=== PATIENT | male | born 1955 | race Caucasian/White ===

== ENCOUNTER 2023-09-01 16:39 | Emergency (ER) | payer OTHER ==
[~2023-09-01] VITALS: Ht 167.6 cm; Wt 85.3 kg
[2023-09-01 16:58] LABS: ABG BASE EXCESS -4.6 mmol/L (-2.0-2.0); ABG HCO3 18.6 mmol/L (22.0-26.0); ABG PCO2 28.6 mmHg (35.0-48.0); ABG PO2 68.8 mmHg (75.0-100.0); ABG SITE LEFT RADIAL; ABG TOTAL HEMOGLOBIN 11.5 G/dL (14.0-18.0); AaDO2 94.5 mmHg; COHb 0.3 % (0.0-3.9); O2Hb 93.8 % (94.0-97.0)
[2023-09-01 17:24] LABS: HEMATOCRIT 33.8 % (36.7-47.1); HEMOGLOBIN 10.9 g/dL (12.5-16.3); LYMPHOCYTES # (AUTO) 0.5 K/uL (0.8-4.8); LYMPHOCYTES % (AUTO) 2.2 % (20.5-51.5); MEAN CORPUSCULAR HEMOGLOBIN 27.1 uug (23.8-33.4); MEAN CORPUSCULAR HGB CONC 32 g/dL (32.5-36.3); MEAN CORPUSCULAR VOLUME 84.3 fL (73.0-96.2); MONOCYTES # (AUTO) 1.1 K/uL (0.1-1.30); MONOCYTES % (AUTO) 4.9 % (0.0-11.0); NEUTROPHILS # (AUTO) 20.8 K/uL (1.8-8.9); NEUTROPHILS % (AUTO) 92.9 % (38.5-71.5); PLATELET COUNT (AUTO) 122 K/uL (152-348); RED BLOOD CELL COUNT(AUTO) 4.01 MIL/uL (4.06-5.63); RED CELL DISTRIBUTION WIDTH 16.5 % (12.1-16.2); WHITE BLOOD COUNT (AUTO) 22.4 K/uL (3.6-10.2)
[2023-09-01 17:30] LABS: DIFFERENTIAL COMMENT 1
[2023-09-01 17:32] LABS: CARBON DIOXIDE 22 mmol/L (21-32); CHLORIDE 96 mmol/L (98-107); SODIUM SERUM 131 mmol/L (136-145)
[2023-09-01 17:33] LABS: CALCIUM 8.7 mg/dL (8.5-10.1); CREATININE 2.8 mg/dL (0.6-1.3); GLUCOSE 398 mg/dL (74-106); UREA NITROGEN, BLOOD 51 mg/dL (7-18)
[2023-09-01 17:35] LABS: ETHANOL < 3 MG/DL (0-10)
[2023-09-01 17:36] LABS: AMMONIA < 10 umol/L (11-32)
[2023-09-01 17:42] LABS: ACETONE, SERUM NEGATIVE (NEGATIVE)
[2023-09-01 17:46] LABS: ALANINE AMINOTRANSFERASE 484 U/L (16-63); ALBUMIN 2.9 g/dL (3.4-5.0); ALKALINE PHOSPHATASE 290 U/L (50-136); ASPARTATE AMINOTRANSFERASE 318 U/L (15-37); BILIRUBIN,DIRECT 3.8 mg/dL (0.0-0.2); BILIRUBIN,TOTAL 4.8 mg/dL (0.2-1.0)
[2023-09-01 17:47] LABS: ACETAMINOPHEN < 2.0 ug/mL (10-30); LIPASE 29 U/L (16-77)
[2023-09-01] MEDS ORDERED: PANT40TA49 PO (17:48)
[2023-09-01] MEDS ORDERED: METO-356 PO (17:48)
[2023-09-01] MEDS ORDERED: FERR325T24 PO (17:48)
[2023-09-01] MEDS ORDERED: CHOL500062 PO (17:48)
[2023-09-01] MEDS ORDERED: AMLO10TA59 PO (17:48)
[2023-09-01] MEDS ORDERED: DONE5TAB34 PO (17:48)
[2023-09-01] MEDS ORDERED: HYDR25TA86 PO (17:48)
[2023-09-01] MEDS ORDERED: BRIM10DR6 EACHEYE (17:48)
[2023-09-01] MEDS ORDERED: INSU200I SQ (17:48)
[2023-09-01] MEDS ORDERED: TAMS-3 PO (17:48)
[2023-09-01] MEDS ORDERED: OMEP1PAC3 PO (17:48)
[2023-09-01] MEDS ORDERED: ATOR40TA PO (17:48)
[2023-09-01] MEDS ORDERED: BETHANECHOL PO (17:48)
[2023-09-01] MEDS ORDERED: BETH25TA2 PO (17:48)
[2023-09-01] MEDS ORDERED: [UNRECOGNIZED DRUG - CODE] IJ (17:48)
[2023-09-01] MEDS ORDERED: SPIR25TA6 PO (17:48)
[2023-09-01] MEDS ORDERED: CITA20TA16 PO (17:48)
[2023-09-01] MEDS ORDERED: INSU100V7 SQ (17:48)
[2023-09-01] MEDS ORDERED: LURA20TA PO (17:48)
[2023-09-01 17:50] LABS: LACTIC ACID 2.1 mmol/L (0.4-2.0)
[2023-09-01] MEDS: IV NORMAL SALINE 1000 ML BAG IV ONE (18:05)
[2023-09-01] MEDS: CEFTRIAXONE 2 G in IV DEXTROSE 5% 100 ML IV ONE (18:13)
[2023-09-01] MEDS ORDERED: CEFTRIAXONE 1 G VIAL ONE (18:13)
[2023-09-01] MEDS ORDERED: VANCOMYCIN IV 200 ML ONE (18:13)
[2023-09-01] MEDS ORDERED: VANCOMYCIN IV 1,000 MG in IV DEXTROSE 5% 250 ML IV ONE (18:15)
[2023-09-01] MEDS ORDERED: METRONIDAZOLE 500 MG/NS 100ML 100 ML IV ONE (18:29)
[2023-09-01] MEDS: METRONIDAZOLE 500 MG/NS 100 ML PIGGYBACK IV ONE (18:30)
[2023-09-01 20:52] LABS: *BLOOD, URINE 2+ (NEGATIVE); *CLARITY,URINE CLEAR (CLEAR); *COLOR,URINE YELLOW (YELLOW); *KETONES,URINE NEGATIVE (NEGATIVE); *UROBILINOGEN,URINE 0.2 E.U./dl (NORMAL); LEUKOCYTE ESTERASE ,URINE NEGATIVE (NEGATIVE); NITRITE, URINE NEGATIVE (NEGATIVE); PH,URINE 5.5 (5.0-8.0)
[2023-09-01 20:59] LABS: *BILIRUBIN,URIN 1+ (NEGATIVE); *PROTEIN,URINE 3+ (NEGATIVE); UGLUCOSE 2+ (NEGATIVE)
[2023-09-01 21:13] LABS: BACTERIA,URINE MANY /HPF (NONE SEEN); SQUAMOUS EPITHELIAL CELL,UR MODERATE /HPF (NONE SEEN); WBC,URINE 0-3 /HPF (0-3); YEAST,URINE BUDDING YEAST /HPF (NONE SEEN)
[2023-09-01 23:01] VITALS: O2SAT 95
== END 2023-09-02 00:54 | disposition short-term general hospital (02) ==
LOC: ER 16:40
DX: R41.82 Altered mental status, unspecified (principal); A41.9 Sepsis, unspecified organism; K81.9 Cholecystitis, unspecified; Z79.899 Other long term (current) drug therapy
CPT/HCPCS: 80076; 80048; 81001; 82009; 82140; 83690; 85025; 85730; 87040 ×2; 87186; 87077 ×2; 84484; 36415; 93005; 71045; 70450; 74176; 76705; 82803; 99291; 96365; 96368; 83605 ×2; 87086; 80299; 80320; 80179; 36600 ×2; J0696; J3490; J3370; J7040; A4606; A4663; C1758; G0480